=== PATIENT | male | born 1995 | race Caucasian/White ===

== ENCOUNTER 2018-08-06 06:49 | Emergency (ER) | payer SELFPAY ==
[~2018-08-06 06:49] MED LIST: CIPR-344 PO; FAMO20TA28 PO; HYDR-385 PO; HYDR-4309 PO; IBUP800T37 PO; LOR5/325 PO; ONDA4TAB PO; ONDA8TAB94 PO
--- NOTE | 2018-08-06 07:01 | ER Report ---
History and Physical Time Seen By MD: 07:00 HPI/ROS CHIEF COMPLAINT: Left-sided pain HISTORY OF PRESENT ILLNESS: Patient is an otherwise healthy 22-year-old male who presents to the emergency department with complaint of 8 out of 10 colicky left flank pain that began this morning. Patient states he thinks the pain woke him up. It is associated with nausea and vomiting. He denies ever having similar symptoms in the past. The pain does not particularly radiate anywhere but is confined to the left flank area. REVIEW OF SYSTEMS: Constitutional: No fever, no chills. Gastrointestinal: Left flank pain, nausea, vomiting Genitourinary: No hematuria. Musculoskeletal: Left flank pain Allergies: Coded Allergies: No Known Drug Allergies (Verified , 08/06/18) Home Meds Active Scripts Oxycodone Hcl/Acetaminophen (PERCOCET 5-325 MG TABLET) 1 Each Tablet, 1-2 EACH PO Q6H for PAIN, #20 TAB 0 Refills no more than 6 tablets in 24 hours Prov:JANES GAN MD 08/06/18 Ondansetron Hcl (ZOFRAN) 4 Mg Tablet, 4 MG PO Q8H for Nausea, #15 TAB 0 Refills Prov:JANES GAN MD 08/06/18 Ondansetron (ZOFRAN ODT) 4 Mg Tab.rapdis, 4 MG PO Q6H PRN for NAUSEA/VOMITING, #20 TAB.GABRIEL 0 Refills Prov:NANCY ANNE MD 05/30/17 Hydrocodone Bit/Acetaminophen (HYDROCODON-ACETAMINOPHEN 5-325) 1 Each Tablet, 1 EACH PO Q4H PRN for PAIN, #12 TAB 0 Refills Prov:NANCY ANNE MD 05/30/17 Reported Medications Hydrocodone Bit/Acetaminophen (HYDROCODON-ACETAMINOPHEN 5-325) 1 Each Tablet, 1 EACH PO Q4-6H PRN for PAIN, #30 12/15/14 Ibuprofen (IBUPROFEN) 800 Mg Tablet, 1 TAB PO TID PRN for PAIN 12/15/14 Famotidine (PEPCID) 20 Mg Tablet, 20 MG PO BID, #20 TAB TAKE 1 TABLET BY MOUTH EVERY DAY 12/15/14 Ciprofloxacin Hcl (CIPRO) 500 Mg Tablet, 500 MG PO BID, #30 12/15/14 Past Medical/Surgical History Noncontributory towards this chief complaint Hx Smoking: No Constitutional Vital Sign - Last 24 Hours 08/06/18 06:57 Temp 97.5 Pulse 61 Resp 22 B/P (MAP) 141/95 Pulse Ox 97 O2 Delivery Room Air Physical Exam General Appearance: The patient is alert, has no immediate need for airway protection and no current signs of toxicity. Respiratory: Chest is non tender, lungs are clear to auscultation. Cardiac: regular rate and rhythm Gastrointestinal: Abdomen is soft and non tender, no masses, bowel sounds normal. Musculoskeletal: Neck: Neck is supple and non tender. Extremities have full range of motion and are non tender. Skin: No rashes or lesions. Medical Decision Making Data Points Result Diagram: 08/06/18 0709 08/06/18 0709 Laboratory Hematology Test 08/06/18 06:53 08/06/18 07:09 Urine Color Yellow Urine Clarity Clear Urine pH 6.0 pH (4.8-9.5) Urine Specific [place] 1.024 Urine Protein Negative mg/dL (NEGATIVE) Urine Glucose (UA) Negative mg/dL (NEGATIVE) Urine Ketones Negative mg/dL (NEGATIVE) Urine Blood Large (NEGATIVE) Urine Nitrite Negative (NEGATIVE) Urine Bilirubin Negative (NEGATIVE) Urine Urobilinogen 2.0 mg/dL (0.2-1.9) Urine Leukocyte Esterase Negative (NEGATIVE) Urine RBC 442 /HPF (0-2/HPF) Urine WBC 2 /HPF (0-5/HPF) Urine Squamous Epithelial Cells None /LPF (</=FEW) Urine Bacteria Negative /HPF (NONE-FEW) Urine Mucus Few /HPF (NONE-FEW) Red Blood Count 6.25 M/uL (4.00-5.60) Mean Corpuscular Volume 84.2 fL (80.0-96.0) Mean Corpuscular Hemoglobin 28.4 pg (26.0-33.0) Mean Corpuscular Hemoglobin Concent 33.7 g/dL (32.0-36.0) Red Cell Distribution Width 14.5 % (11.5-14.5) Mean Platelet Volume 7.5 fL (7.2-11.1) Neutrophils (%) (Auto) 54.8 % (39.4-72.5) Lymphocytes (%) (Auto) 35.9 % (17.6-49.6) Monocytes (%) (Auto) 7.4 % (4.1-12.4) Eosinophils (%) (Auto) 1.3 % (0.4-6.7) Basophils (%) (Auto) 0.6 % (0.3-1.4) Nucleated RBC Relative Count (auto) 0.0 /100WBC Neutrophils # (Auto) 4.1 K/uL (2.0-7.4) Lymphocytes # (Auto) 2.7 K/uL (1.3-3.6) Monocytes # (Auto) 0.5 K/uL (0.3-1.0) Eosinophils # (Auto) 0.1 K/uL (0.0-0.5) Basophils # (Auto) 0.0 K/uL (0.0-0.1) Nucleated RBC Absolute Count (auto) 0.00 K/uL Sodium Level 143 mmol/L (137-145) Potassium Level 4.0 mmol/L (3.5-5.0) Chloride Level 103 mmol/L (98-107) Carbon Dioxide Level 25 mmol/L (22-30) Blood Urea Nitrogen 15 mg/dl (9-21) Creatinine 1.20 mg/dl (0.66-1.25) Glomerular Filtration Rate Calc > 60.0 Random Glucose 119 mg/dl (75-110) Calcium Level 9.4 mg/dl (8.4-10.2) Total Bilirubin 0.6 mg/dl (0.2-1.3) Aspartate Amino Transf (AST/SGOT) 31 U/L (0-35) Alanine Aminotransferase (ALT/SGPT) 34 U/L (0-56) Alkaline Phosphatase 52 U/L (0-126) Total Protein 8.1 g/dl (6.3-8.2) Albumin 4.6 g/dl (3.5-5.0) Chemistry Test 08/06/18 06:53 08/06/18 07:09 Urine Color Yellow Urine Clarity Clear Urine pH 6.0 pH (4.8-9.5) Urine Specific [place] 1.024 Urine Protein Negative mg/dL (NEGATIVE) Urine Glucose (UA) Negative mg/dL (NEGATIVE) Urine Ketones Negative mg/dL (NEGATIVE) Urine Blood Large (NEGATIVE) Urine Nitrite Negative (NEGATIVE) Urine Bilirubin Negative (NEGATIVE) Urine Urobilinogen 2.0 mg/dL (0.2-1.9) Urine Leukocyte Esterase Negative (NEGATIVE) Urine RBC 442 /HPF (0-2/HPF) Urine WBC 2 /HPF (0-5/HPF) Urine Squamous Epithelial Cells None /LPF (</=FEW) Urine Bacteria Negative /HPF (NONE-FEW) Urine Mucus Few /HPF (NONE-FEW) White Blood Count 7.4 k/uL (4.5-11.0) Red Blood Count 6.25 M/uL (4.00-5.60) Hemoglobin 17.7 g/dL (14.0-18.0) Hematocrit 52.6 % (42.0-52.0) Mean Corpuscular Volume 84.2 fL (80.0-96.0) Mean Corpuscular Hemoglobin 28.4 pg (26.0-33.0) Mean Corpuscular Hemoglobin Concent 33.7 g/dL (32.0-36.0) Red Cell Distribution Width 14.5 % (11.5-14.5) Platelet Count 220 K/uL (150-450) Mean Platelet Volume 7.5 fL (7.2-11.1) Neutrophils (%) (Auto) 54.8 % (39.4-72.5) Lymphocytes (%) (Auto) 35.9 % (17.6-49.6) Monocytes (%) (Auto) 7.4 % (4.1-12.4) Eosinophils (%) (Auto) 1.3 % (0.4-6.7) Basophils (%) (Auto) 0.6 % (0.3-1.4) Nucleated RBC Relative Count (auto) 0.0 /100WBC Neutrophils # (Auto) 4.1 K/uL (2.0-7.4) Lymphocytes # (Auto) 2.7 K/uL (1.3-3.6) Monocytes # (Auto) 0.5 K/uL (0.3-1.0) Eosinophils # (Auto) 0.1 K/uL (0.0-0.5) Basophils # (Auto) 0.0 K/uL (0.0-0.1) Nucleated RBC Absolute Count (auto) 0.00 K/uL Glomerular Filtration Rate Calc > 60.0 Calcium Level 9.4 mg/dl (8.4-10.2) Total Bilirubin 0.6 mg/dl (0.2-1.3) Aspartate Amino Transf (AST/SGOT) 31 U/L (0-35) Alanine Aminotransferase (ALT/SGPT) 34 U/L (0-56) Alkaline Phosphatase 52 U/L (0-126) Total Protein 8.1 g/dl (6.3-8.2) Albumin 4.6 g/dl (3.5-5.0) Urinalysis Test 08/06/18 06:53 Urine Color Yellow Urine Clarity Clear Urine pH 6.0 pH (4.8-9.5) Urine Specific [place] 1.024 Urine Protein Negative mg/dL (NEGATIVE) Urine Glucose (UA) Negative mg/dL (NEGATIVE) Urine Ketones Negative mg/dL (NEGATIVE) Urine Blood Large (NEGATIVE) Urine Nitrite Negative (NEGATIVE) Urine Bilirubin Negative (NEGATIVE) Urine Urobilinogen 2.0 mg/dL (0.2-1.9) Urine Leukocyte Esterase Negative (NEGATIVE) Urine RBC 442 /HPF (0-2/HPF) Urine WBC 2 /HPF (0-5/HPF) Urine Squamous Epithelial Cells None /LPF (</=FEW) Urine Bacteria Negative /HPF (NONE-FEW) Urine Mucus Few /HPF (NONE-FEW) EKG/Imaging Imaging FACILITY: [facility] [place] PATIENT NAME: Mateo Henderson : 1995 MR: [id number] V: [id number] EXAM DATE: ORDERING PHYSICIAN: JANES GAN TECHNOLOGIST: [place] [facility] [place] Mateo [place] : 1995 Visit/Account:[id number] Date of Sevice: 08/06/2018 ABDOMEN/PELVIS W/O CONTRAST HISTORY:left flank pain and hydronephrosis on u/s TECHNIQUE: CT abdomen and pelvis without intravenous contrast. Contiguous axial images of the abdomen and pelvis was performed from the lung bases to the symphysis pubis. One of the following dose optimization techniques was utilized in the performance of this exam: Automated exposure control; adjustment of the mA and/or kV according to the patient's size; or use of an iterative reconstruction technique. Specific details can be referenced in the facility's radiology CT exam operational policy. CONTRAST: None. COMPARISON: None. FINDINGS: Visualized lung bases: Negative. Hepatobiliary: Negative. Spleen: Negative. Adrenals: Negative. Kidneys/: There is a 4 mm obstructing mid left ureteral stone with associated hydroureter and moderate left-sided hydronephrosis. The stone is at the level of the L3 vertebral body. No other radiopaque renal or ureteral stones are seen. Pancreas: Negative. GI: Negative. Vessels/spaces/nodes: Negative. Bones/soft tissues: Negative. IMPRESSION: 1. 4 mm obstructing mid left ureteral stone with associated left hydroureter and moderate left-sided hydronephrosis. Report Dictated By: Mata Alves MD at 08/06/2018 7:43 AM Report E-Signed By: Mata Alves MD at 08/06/2018 7:48 AM WSN:[id number] ED Course/Re-evaluation Clinical Indication for ER IV: IV Access ED Course 08/06/2018 7:14:39 am bedside ultrasound was performed which showed grade 2-3 hydronephrosis of the left kidney. Highly suspicious for ureteral obstruction due to kidney stone. Plan at this time will be IV pain medication to include Toradol, morphine. We'll also give Zofran 4 mg for nausea. We'll perform non- contrast CT scan of the abdomen and pelvis to identify location and size of the suspected kidney stone. Decision to Disposition Date: Aug 06, 2018 Decision to Disposition Time: 07:56 Depart Departure Latest Vital Signs Vital Signs Date Time Temp Pulse Resp B/P (MAP) Pulse Ox O2 Delivery O2 Flow Rate FiO2 08/06/18 06:57 97.5 61 22 141/95 97 Room Air Impression: Primary Impression: Kidney stone on left side Condition: Improved Disposition: HOME OR SELF-CARE Referrals: NITHIN SHAH MD (PCP) 2 Days if symptoms persist New Scripts Oxycodone Hcl/Acetaminophen (PERCOCET 5-325 MG TABLET) 1 Each Tablet 1-2 EACH PO Q6H for PAIN, #20 TAB 0 Refills no more than 6 tablets in 24 hours Prov: JANES GAN MD 08/06/18 Ondansetron Hcl (ZOFRAN) 4 Mg Tablet 4 MG PO Q8H for Nausea, #15 TAB 0 Refills Prov: JANES GAN MD 08/06/18 Patient Instructions: Kidney Stones (DC) Additional Instructions: Return to the emergency department for reevaluation immediately if you develop fever at any time, if your pain is not controlled with prescribed medications or you have intractable vomiting. He should either follow up with your primary care provider or return to the emergency department in 48-72 hours if your pain persists JANES GAN MD Aug 06, 2018 07:01
[2018-08-06] MEDS ORDERED: NS(*) 0.9% 1000 ML BAG 1,000 ML IV ONE (07:09)
[2018-08-06] MEDS ORDERED: ONDANSETRON 4 MG/2 ML VIAL IVP ONE (07:10)
[2018-08-06] MEDS ORDERED: MORPHINE 4 MG/ML SDV IVP ONE ×2 (07:10→08:00)
[2018-08-06] MEDS ORDERED: KETOROLAC 15 MG/ML VIAL IVP ONE (07:10)
[2018-08-06 07:22] LABS: PLATELET COUNT, AUTOMATED 220 K/uL (150-450)
[2018-08-06] MEDS ORDERED: ONDA4TAB97 PO (07:47)
[2018-08-06] MEDS ORDERED: OXYC-865 PO (07:47)
--- NOTE | 2018-08-06 07:53 | RADIOLOGY IMAGING REPORT ---
FACILITY: [facility] - [place] PATIENT NAME: Mateo Henderson : 1995 MR: [id number] V: [id number] EXAM DATE: ORDERING PHYSICIAN: JANES GAN TECHNOLOGIST: Location: [facility] Patient: Mateo Henderson : 1995 Visit/Account:[id number] Date of Sevice: 08/06/2018 ABDOMEN/PELVIS W/O CONTRAST HISTORY:left flank pain and hydronephrosis on u/s TECHNIQUE: CT abdomen and pelvis without intravenous contrast. Contiguous axial images of the abdom en and pelvis was performed from the lung bases to the symphysis pubis. One of the following dose optimization techniques was utilized in the performance of this exam: Autom ated exposure control; adjustment of the mA and/or kV according to the patient's size; or use of an i terative reconstruction technique. Specific details can be referenced in the facility's radiology C T exam operational policy. CONTRAST: None. COMPARISON: None. FINDINGS: Visualized lung bases: Negative. Hepatobiliary: Negative. Spleen: Negative. Adrenals: Negative. Kidneys/: There is a 4 mm obstructing mid left ureteral stone with associated hydroureter and mode rate left-sided hydronephrosis. The stone is at the level of the L3 vertebral body. No other radiopaque renal or ureteral stones are seen. Pancreas: Negative. GI: Negative. Vessels/spaces/nodes: Negative. Bones/soft tissues: Negative. IMPRESSION: 1. 4 mm obstructing mid left ureteral stone with associated left hydroureter and moderate left-sided hydronephrosis. Report Dictated By: Mata Alves MD at 08/06/2018 7:43 AM Report E-Signed By: Mata Alves MD at 08/06/2018 7:48 AM WSN:[id number]
[2018-08-06 08:00] VITALS: BP 130/89
== END 2018-08-06 08:27 | disposition home or self-care (01) ==
LOC: ER 07:04
DX: N20.0 Calculus of kidney (principal); N13.4 Hydroureter; N13.30 Unspecified hydronephrosis
CPT/HCPCS: 74176; 81001; 85025; 96361; 96374; 96375; 96376; 99284; J1885; J2270; J2405; J7030; 82040; 82247; 82310; 82374; 82435; 82565; 82947; 84075; 84132; 84155; 84295; 84450; 84460; 84520

== ENCOUNTER 2018-08-13 03:34 | Emergency (ER) | payer SELFPAY ==
[~2018-08-13 03:34] MED LIST changes: +ONDA4TAB97 PO; +OXYC-865 PO
--- NOTE | 2018-08-13 03:37 | ER Report ---
History and Physical Time Seen By MD: 03:37 HPI/ROS CHIEF COMPLAINT: Left flank pain HISTORY OF PRESENT ILLNESS: Patient is a 22-year-old male here with complaints of left-sided flank pain which started approximately midnight. Patient was seen here on August 06 for similar complaints at which time he was diagnosed with a 4 mm mid ureteral stone with moderate hydronephrosis. Patient was sent home with outpatient pain medication however he developed recurrent pain tonight after having 2 days of being pain free. Patient denies fevers or chills, chest pain or shortness breath, nausea or vomiting hematuria, dysuria, constipation, diarrhea. REVIEW OF SYSTEMS: Constitutional: No fever, no chills. Eyes: No discharge. ENT: No sore throat. Cardiovascular: No chest pain, no palpitations. Respiratory: No cough, no shortness of breath. Gastrointestinal: Left sided abdominal pain, no vomiting or nausea. Genitourinary: No hematuria. Musculoskeletal: + left flank back pain. Skin: No rashes. Neurological: No headache. Allergies: Coded Allergies: No Known Drug Allergies (Verified , 08/06/18) Home Meds Active Scripts Tramadol Hcl (TRAMADOL HCL) 50 Mg Tablet, 50 MG PO Q6H PRN for PAIN, #6 TAB 0 Refills Prov:NANNETTE GIRON DO 08/13/18 Discontinued Reported Medications Hydrocodone Bit/Acetaminophen (HYDROCODON-ACETAMINOPHEN 5-325) 1 Each Tablet, 1 EACH PO Q4-6H PRN for PAIN, #30 12/15/14 Ibuprofen (IBUPROFEN) 800 Mg Tablet, 1 TAB PO TID PRN for PAIN 12/15/14 Famotidine (PEPCID) 20 Mg Tablet, 20 MG PO BID, #20 TAB TAKE 1 TABLET BY MOUTH EVERY DAY 12/15/14 Ciprofloxacin Hcl (CIPRO) 500 Mg Tablet, 500 MG PO BID, #30 12/15/14 Discontinued Scripts Oxycodone Hcl/Acetaminophen (PERCOCET 5-325 MG TABLET) 1 Each Tablet, 1-2 EACH PO Q6H for PAIN, #20 TAB 0 Refills no more than 6 tablets in 24 hours Prov:JANES GAN MD 08/06/18 Ondansetron Hcl (ZOFRAN) 4 Mg Tablet, 4 MG PO Q8H for Nausea, #15 TAB 0 Refills Prov:JANES GAN MD 08/06/18 Ondansetron (ZOFRAN ODT) 4 Mg Tab.rapdis, 4 MG PO Q6H PRN for NAUSEA/VOMITING, #20 TAB.GABRIEL 0 Refills Prov:NANCY ANNE MD 05/30/17 Hydrocodone Bit/Acetaminophen (HYDROCODON-ACETAMINOPHEN 5-325) 1 Each Tablet, 1 EACH PO Q4H PRN for PAIN, #12 TAB 0 Refills Prov:NANCY ANNE MD 05/30/17 Hx Smoking: No Hx Substance Use Disorder: Yes (pot) Hx Alcohol Use: No Constitutional Vital Sign - Last 24 Hours 08/13/18 08/13/18 08/13/18 08/13/18 03:34 03:38 03:41 04:00 Temp 97.9 Pulse ??? 59 Resp 17 B/P (MAP) 147/98 147/98 (114) 134/87 (103) Pulse Ox 95 O2 Delivery Room Air 08/13/18 08/13/18 08/13/18 08/13/18 04:04 04:30 04:34 05:00 Pulse 65 65 B/P (MAP) 126/75 (92) 117/69 (85) Pulse Ox 93 94 08/13/18 08/13/18 08/13/18 08/13/18 05:04 05:30 06:00 06:30 Pulse 61 58 64 51 B/P (MAP) 110/58 (75) 116/76 (89) 106/57 (73) Pulse Ox 96 94 93 94 Physical Exam General Appearance: The patient is alert, has no immediate need for airway protection and no signs of toxicity. NAD Eyes: Pupils equal and round no pallor or injection. ENT, Mouth: Mucous membranes are moist. Respiratory: There are no retractions, lungs are clear to auscultation. Cardiovascular: Regular rate and rhythm. Gastrointestinal: Abdomen is soft and + tender in the left abdomen, no masses, bowel sounds normal. Neurological: No focal neuro deficits Skin: Warm and dry, no rashes. Musculoskeletal: Neck is supple non tender. + left CVA tenderness Extremities are nontender, nonswollen and have full range of motion. DIFFERENTIAL DIAGNOSIS: After history and physical exam differential diagnosis was considered for abdominal pain including but not limited to appendicitis, cholecystitis, gastritis and urinary tract infection, ureterolithiasis Medical Decision Making Data Points Result Diagram: 08/13/18 0400 08/13/18 0400 Laboratory Hematology Test 08/13/18 03:39 08/13/18 04:00 Urine Color Yellow Urine Clarity Clear Urine pH 5.0 pH (4.8-9.5) Urine Specific [place] 1.021 Urine Protein Negative mg/dL (NEGATIVE) Urine Glucose (UA) Negative mg/dL (NEGATIVE) Urine Ketones Negative mg/dL (NEGATIVE) Urine Blood Large (NEGATIVE) Urine Nitrite Negative (NEGATIVE) Urine Bilirubin Negative (NEGATIVE) Urine Urobilinogen Negative mg/dL (0.2-1.9) Urine Leukocyte Esterase Negative (NEGATIVE) Urine RBC 223 /HPF (0-2/HPF) Urine WBC 5 /HPF (0-5/HPF) Urine Squamous Epithelial Cells None /LPF (</=FEW) Urine Bacteria Negative /HPF (NONE-FEW) Urine Mucus Few /HPF (NONE-FEW) Red Blood Count 6.13 M/uL (4.00-5.60) Mean Corpuscular Volume 83.1 fL (80.0-96.0) Mean Corpuscular Hemoglobin 28.1 pg (26.0-33.0) Mean Corpuscular Hemoglobin Concent 33.8 g/dL (32.0-36.0) Red Cell Distribution Width 14.4 % (11.5-14.5) Mean Platelet Volume 7.3 fL (7.2-11.1) Neutrophils (%) (Auto) 63.1 % (39.4-72.5) Lymphocytes (%) (Auto) 24.6 % (17.6-49.6) Monocytes (%) (Auto) 8.7 % (4.1-12.4) Eosinophils (%) (Auto) 1.4 % (0.4-6.7) Basophils (%) (Auto) 2.2 % (0.3-1.4) Nucleated RBC Relative Count (auto) 0.1 /100WBC Neutrophils # (Auto) 5.3 K/uL (2.0-7.4) Lymphocytes # (Auto) 2.0 K/uL (1.3-3.6) Monocytes # (Auto) 0.7 K/uL (0.3-1.0) Eosinophils # (Auto) 0.1 K/uL (0.0-0.5) Basophils # (Auto) 0.2 K/uL (0.0-0.1) Nucleated RBC Absolute Count (auto) 0.01 K/uL Sodium Level 139 mmol/L (137-145) Potassium Level 4.0 mmol/L (3.5-5.0) Chloride Level 100 mmol/L (98-107) Carbon Dioxide Level 27 mmol/L (22-30) Blood Urea Nitrogen 17 mg/dl (9-21) Creatinine 1.10 mg/dl (0.66-1.25) Glomerular Filtration Rate Calc > 60.0 Random Glucose 97 mg/dl (75-110) Calcium Level 9.4 mg/dl (8.4-10.2) Total Bilirubin 0.5 mg/dl (0.2-1.3) Aspartate Amino Transf (AST/SGOT) 21 U/L (0-35) Alanine Aminotransferase (ALT/SGPT) 32 U/L (0-56) Alkaline Phosphatase 45 U/L (0-126) C-Reactive Protein < 0.5 mg/dl (<1.0) Total Protein 7.4 g/dl (6.3-8.2) Albumin 4.2 g/dl (3.5-5.0) Lipase 94 U/L (23-300) Chemistry Test 08/13/18 03:39 08/13/18 04:00 Urine Color Yellow Urine Clarity Clear Urine pH 5.0 pH (4.8-9.5) Urine Specific [place] 1.021 Urine Protein Negative mg/dL (NEGATIVE) Urine Glucose (UA) Negative mg/dL (NEGATIVE) Urine Ketones Negative mg/dL (NEGATIVE) Urine Blood Large (NEGATIVE) Urine Nitrite Negative (NEGATIVE) Urine Bilirubin Negative (NEGATIVE) Urine Urobilinogen Negative mg/dL (0.2-1.9) Urine Leukocyte Esterase Negative (NEGATIVE) Urine RBC 223 /HPF (0-2/HPF) Urine WBC 5 /HPF (0-5/HPF) Urine Squamous Epithelial Cells None /LPF (</=FEW) Urine Bacteria Negative /HPF (NONE-FEW) Urine Mucus Few /HPF (NONE-FEW) White Blood Count 8.3 k/uL (4.5-11.0) Red Blood Count 6.13 M/uL (4.00-5.60) Hemoglobin 17.3 g/dL (14.0-18.0) Hematocrit 51.0 % (42.0-52.0) Mean Corpuscular Volume 83.1 fL (80.0-96.0) Mean Corpuscular Hemoglobin 28.1 pg (26.0-33.0) Mean Corpuscular Hemoglobin Concent 33.8 g/dL (32.0-36.0) Red Cell Distribution Width 14.4 % (11.5-14.5) Platelet Count 196 K/uL (150-450) Mean Platelet Volume 7.3 fL (7.2-11.1) Neutrophils (%) (Auto) 63.1 % (39.4-72.5) Lymphocytes (%) (Auto) 24.6 % (17.6-49.6) Monocytes (%) (Auto) 8.7 % (4.1-12.4) Eosinophils (%) (Auto) 1.4 % (0.4-6.7) Basophils (%) (Auto) 2.2 % (0.3-1.4) Nucleated RBC Relative Count (auto) 0.1 /100WBC Neutrophils # (Auto) 5.3 K/uL (2.0-7.4) Lymphocytes # (Auto) 2.0 K/uL (1.3-3.6) Monocytes # (Auto) 0.7 K/uL (0.3-1.0) Eosinophils # (Auto) 0.1 K/uL (0.0-0.5) Basophils # (Auto) 0.2 K/uL (0.0-0.1) Nucleated RBC Absolute Count (auto) 0.01 K/uL Glomerular Filtration Rate Calc > 60.0 Calcium Level 9.4 mg/dl (8.4-10.2) Total Bilirubin 0.5 mg/dl (0.2-1.3) Aspartate Amino Transf (AST/SGOT) 21 U/L (0-35) Alanine Aminotransferase (ALT/SGPT) 32 U/L (0-56) Alkaline Phosphatase 45 U/L (0-126) C-Reactive Protein < 0.5 mg/dl (<1.0) Total Protein 7.4 g/dl (6.3-8.2) Albumin 4.2 g/dl (3.5-5.0) Lipase 94 U/L (23-300) Urinalysis Test 08/13/18 03:39 Urine Color Yellow Urine Clarity Clear Urine pH 5.0 pH (4.8-9.5) Urine Specific [place] 1.021 Urine Protein Negative mg/dL (NEGATIVE) Urine Glucose (UA) Negative mg/dL (NEGATIVE) Urine Ketones Negative mg/dL (NEGATIVE) Urine Blood Large (NEGATIVE) Urine Nitrite Negative (NEGATIVE) Urine Bilirubin Negative (NEGATIVE) Urine Urobilinogen Negative mg/dL (0.2-1.9) Urine Leukocyte Esterase Negative (NEGATIVE) Urine RBC 223 /HPF (0-2/HPF) Urine WBC 5 /HPF (0-5/HPF) Urine Squamous Epithelial Cells None /LPF (</=FEW) Urine Bacteria Negative /HPF (NONE-FEW) Urine Mucus Few /HPF (NONE-FEW) EKG/Imaging Imaging EXAMINATION: Ultrasound renal HISTORY: Left ureterolithiasis 08/06/2018. COMPARISON: CT abdomen and pelvis from 08/06/2018. FINDINGS: Kidneys: Right kidney: 9.8 cm, normal parenchymal thickness and echogenicity. Left kidney: 10.2 cm, normal parenchymal thickness and echogenicity. Uniform and symmetric blood flow in each kidney by Doppler ultrasound. Resistive index is normal on the right at 0.56 and on the left at 0.63. Hydronephrosis: Mild left hydronephrosis is slightly improved from CT. Hydronephrosis does not change after the patient voids. Bladder: Partly distended without focal abnormality. Normal bilateral ureteral jets visualized. Minimal post void residual of 4 mL. Abdominal aorta and IVC: Patent by Doppler ultrasound. IMPRESSION: 1. Mild left hydronephrosis is slightly improved from CT. 2. Minimal post void residual of 4 mL. ED Course/Re-evaluation ED Course Patient is a 22-year-old male here with complaints of left-sided flank pain after recent diagnosis of ureterolithiasis on August 06 when he had a 4 mm mid ureteral stone and moderate hydronephrosis. Patient is afebrile, hemodynamically stable. He had 2 days of relief of pain but develop recurrent pain at approximately midnight. Kidney function was intact electrolytes were unremarkable, urinalysis showed no signs of infection. Patient did not have leukocytosis on CBC. Patient was given lidocaine intravenously for analgesia. Upon reevaluation patient reports intermittently having left testicular pain however on further examination there is no erythema, swelling or tenderness on palpation which makes this likely referred pain symptom. Patient was given Toradol for further analgesia. Since the patient recently had CT imaging on the , ultrasound imaging was ordered to avoid radiation exposure which showed only mild hydronephrosis. I updated the patient regarding these findings and reassured him that the stone was likely either passed or about the pass. Patient was given a prescription for tramadol for home analgesia and was stable at time of discharge. Decision to Disposition Date: Aug 13, 2018 Decision to Disposition Time: 06:30 Depart Departure Latest Vital Signs Vital Signs Date Time Temp Pulse Resp B/P (MAP) Pulse Ox O2 Delivery O2 Flow Rate FiO2 08/13/18 06:30 51 106/57 (73) 94 08/13/18 03:38 97.9 17 Room Air Impression: Primary Impression: Flank pain Condition: Improved Disposition: HOME OR SELF-CARE New Scripts Tramadol Hcl (TRAMADOL HCL) 50 Mg Tablet 50 MG PO Q6H PRN for PAIN, #6 TAB 0 Refills Prov: NANNETTE GIRON DO 08/13/18 Patient Instructions: Flank Pain (ED) Additional Instructions: Please take naproxen 500 mg twice a day for the next 3 days. You may take 1 tablet of tramadol every 6-8 hours as needed for breakthrough pain. Please take your Zofran every 6-8 hours as needed for nausea and vomiting.Please drink plenty of water. NANNETTE GIRON DO Aug 13, 2018 03:37
[2018-08-13] MEDS ORDERED: LIDOCAINE 2% IV 100 MG/5ML SYR IVP ONE (03:45)
[2018-08-13] MEDS ORDERED: NS(*) 0.9% 1000 ML BAG 1,000 ML IV ONE (03:45)
[2018-08-13] MEDS ORDERED: ONDANSETRON 4 MG/2 ML VIAL IVP ONE (03:45)
[2018-08-13 04:19] LABS: PLATELET COUNT, AUTOMATED 196 K/uL (150-450)
[2018-08-13] MEDS ORDERED: KETOROLAC 30 MG/ML VIAL IVP ONE (04:30)
--- NOTE | 2018-08-13 06:12 | RADIOLOGY IMAGING REPORT ---
FACILITY: [facility] PATIENT NAME: Mateo Henderson : 1995 MR: [id number] V: [id number] EXAM DATE: ORDERING PHYSICIAN: NANNETTE GIRON TECHNOLOGIST: Location: [facility] Patient: Mateo Henderson : 1995 Visit/Account:[id number] Date of Sevice: 08/13/2018 EXAMINATION: Ultrasound renal HISTORY: Left ureterolithiasis 08/06/2018. COMPARISON: CT abdomen and pelvis from 08/06/2018. FINDINGS: Kidneys: Right kidney: 9.8 cm, normal parenchymal thickness and echogenicity. Left kidney: 10.2 cm, normal parenchymal thickness and echogenicity. Uniform and symmetric blood flow in each kidney by Doppler ultrasound. Resistive index is normal on the right at 0.56 and on the left at 0.63. Hydronephrosis: Mild left hydronephrosis is slightly improved from CT. Hydronephrosis does not change after the patient voids. Bladder: Partly distended without focal abnormality. Normal bilateral ureteral jets visualized. Min imal post void residual of 4 mL. Abdominal aorta and IVC: Patent by Doppler ultrasound. IMPRESSION: 1. Mild left hydronephrosis is slightly improved from CT. 2. Minimal post void residual of 4 mL. Report Dictated By: Danuta Be MD at 08/13/2018 6:05 AM Report E-Signed By: Danuta Be MD at 08/13/2018 6:09 AM WSN:[id number]
[2018-08-13] MEDS ORDERED: TRAM-420 PO (06:23)
[2018-08-13 06:30] VITALS: BP 106/57
== END 2018-08-13 06:50 | disposition home or self-care (01) ==
LOC: ER 03:38
DX: R10.9 Unspecified abdominal pain (principal); N13.30 Unspecified hydronephrosis
CPT/HCPCS: 76705; 81001; 83690; 85025; 86140; 96361; 96374; 96375; 99284; J1885; J2001; J2405; J7030; 82040; 82247; 82310; 82374; 82435; 82565; 82947; 84075; 84132; 84155; 84295; 84450; 84460; 84520